=== PATIENT | male | born 1985 | race Caucasian/White ===

== ENCOUNTER 2020-07-19 14:20 | Outpatient (CLI) | payer OTHER, SELFPAY ==
--- NOTE | 2020-07-19 14:28 | XR_ITS ---
WS: [id number] RIGHT FOOT: 2 VIEW(S) TECHNIQUE: AP and lateral. HISTORY: ARTHRITIS COMPARISON: None available. No acute fracture or dislocation. Normal tarsal/metatarsal alignment. No soft tissue abnormality or bone destruction. XR/XR foot RT 2V [id number] IMPRESSION: Normal RIGHT foot.
--- NOTE | 2020-07-19 14:28 | XR_ITS ---
WS: [id number] LEFT FOOT: 2 VIEW(S) TECHNIQUE: AP and lateral. HISTORY: ARTHRITIS COMPARISON: None available. No acute fracture or dislocation. Normal tarsal/metatarsal alignment. No soft tissue abnormality or bone destruction. XR/XR foot LT 2V [id number] IMPRESSION: Normal LEFT foot.
== END 2020-07-19 14:21 | disposition home or self-care (01) ==
PROVIDERS: Visit Provider Orthopaedic Surgery
DX: M13.872 Other specified arthritis, left ankle and foot (principal); M13.871 Other specified arthritis, right ankle and foot
CPT/HCPCS: 73620